=== PATIENT | male | born 1985 | race Hispanic/Latino ===

== ENCOUNTER 2019-03-13 16:37 | Emergency (ER) | payer OTHER | END 2019-03-13 16:56 | disposition home or self-care (01) | LOC: EDH 16:37 | DX: K42.9 Umbilical hernia without obstruction or gangrene (principal); Z72.0 Tobacco use ==

== ENCOUNTER → 2022-09-26 | Outpatient (CLI) | payer OTHER | END | disposition home or self-care (01) | LOC: DTH 10:52 | PROVIDERS: ATTEND Surgery | DX: Z71.3 Dietary counseling and surveillance (principal); E66.01 Morbid (severe) obesity due to excess calories; G47.33 Obstructive sleep apnea (adult) (pediatric); I10 Essential (primary) hypertension; M19.91 Primary osteoarthritis, unspecified site; Z68.45 Body mass index [BMI] 70 or greater, adult | CPT/HCPCS: 97803 ==

== ENCOUNTER → 2022-10-22 | Outpatient (CLI) | payer OTHER | END | disposition home or self-care (01) | LOC: DTH 11:12 | PROVIDERS: ATTEND Surgery | DX: Z71.3 Dietary counseling and surveillance (principal); G47.33 Obstructive sleep apnea (adult) (pediatric); E66.01 Morbid (severe) obesity due to excess calories; I10 Essential (primary) hypertension; M19.91 Primary osteoarthritis, unspecified site; Z68.45 Body mass index [BMI] 70 or greater, adult | CPT/HCPCS: 97803 ==

== ENCOUNTER → 2022-11-19 | Outpatient (CLI) | payer OTHER | END | disposition home or self-care (01) | LOC: DTH 10:47 | PROVIDERS: ATTEND Surgery | DX: Z71.3 Dietary counseling and surveillance (principal); E66.01 Morbid (severe) obesity due to excess calories; G47.33 Obstructive sleep apnea (adult) (pediatric); I10 Essential (primary) hypertension; M19.91 Primary osteoarthritis, unspecified site; Z68.45 Body mass index [BMI] 70 or greater, adult | CPT/HCPCS: 97803 ==

== ENCOUNTER → 2022-12-19 | Outpatient (CLI) | payer OTHER | END | disposition home or self-care (01) | LOC: DTH 10:28 | PROVIDERS: ATTEND Surgery | DX: Z71.3 Dietary counseling and surveillance (principal); E66.01 Morbid (severe) obesity due to excess calories; G47.33 Obstructive sleep apnea (adult) (pediatric); I10 Essential (primary) hypertension; M19.90 Unspecified osteoarthritis, unspecified site; Z68.45 Body mass index [BMI] 70 or greater, adult | CPT/HCPCS: 97803 ==

== ENCOUNTER → 2023-01-22 | Outpatient (CLI) | payer OTHER | END | disposition home or self-care (01) | LOC: DTH 09:35 | PROVIDERS: ATTEND Surgery | DX: Z71.3 Dietary counseling and surveillance (principal); E66.01 Morbid (severe) obesity due to excess calories; G47.33 Obstructive sleep apnea (adult) (pediatric); I10 Essential (primary) hypertension; M19.90 Unspecified osteoarthritis, unspecified site; Z68.45 Body mass index [BMI] 70 or greater, adult | CPT/HCPCS: 97803 ==

== ENCOUNTER → 2023-04-01 | Outpatient (CLI) | payer OTHER | END | disposition home or self-care (01) | LOC: DTH 09:58 | PROVIDERS: ATTEND Surgery | DX: Z71.3 Dietary counseling and surveillance (principal); E66.01 Morbid (severe) obesity due to excess calories; G47.33 Obstructive sleep apnea (adult) (pediatric); I10 Essential (primary) hypertension; M19.90 Unspecified osteoarthritis, unspecified site; Z68.45 Body mass index [BMI] 70 or greater, adult | CPT/HCPCS: 97803 ==

== ENCOUNTER → 2024-11-17 | Outpatient (CLI) | payer MEDICAID ==
[~2024-11-17] MED LIST: ASPI-1443 PO; LEVO150T11 PO; METO-391 PO; OLME-30 PO
[2024-11-17 14:02] LABS: CREATININE 1.0 mg/dL (0.5-1.3); GLOMERULAR FILTR. RATE CALC 97.0 mL/min (>90); UREA NITROGEN, BLOOD 17.0 mg/dL (7-18)
== END | disposition home or self-care (01) ==
LOC: LAB 13:08
PROVIDERS: ATTEND Surgery
DX: K42.9 Umbilical hernia without obstruction or gangrene (principal)
CPT/HCPCS: 36415; 82565; 84520

== ENCOUNTER → 2024-12-10 | Outpatient (CLI) | payer MEDICAID ==
[~2024-12-10] MED LIST changes: +IOHEXOL 350 MG/ML 100ML INFUS..BTL IV ONE
--- NOTE | 2024-12-10 14:53 | HMCIMG ---
EXAM: COMPUTED TOMOGRAPHY OF THE ABDOMEN AND PELVIS WITH AND WITHOUT INTRAVENOUS CONTRAST (ORAL CONTRAST ADMINISTERED) Technique: Helical multiphasic computed tomography from the xiphisternum to the pubic symphysis before and after intravenous contrast with multiplanar reformations; oral contrast administered. Dose optimization techniques applied (automated exposure control and size-based kilovoltage/milliampere modulation; iterative reconstruction). CTDIvol 85.10 mGy; DLP 5,527.3 mGy???cm. Contrast: Intravenous non-ionic contrast administered; oral contrast administered. Clinical Information: Umbilical hernia without obstruction or gangrene. Findings: Lung bases: No pleural effusion, lobar collapse, or consolidation in the imaged lung bases. Liver: Normal size, contour, and attenuation; no focal hepatic lesion; intrahepatic and extrahepatic bile ducts are not dilated. Portal and hepatic veins are normal in caliber. Gallbladder and biliary tree: Gallbladder with normal wall thickness and smooth contour; no stones or mass; cystic duct region unremarkable. Pancreas: Normal size and enhancement; pancreatic duct not dilated; no peripancreatic inflammation. Spleen: Normal parenchymal attenuation and contour; no focal lesion. Adrenals: Normal morphology and attenuation bilaterally. Kidneys and ureters: Normal size, shape, position, and attenuation bilaterally; no renal or ureteral calculus; no mass; no hydronephrosis. Stomach and duodenum: Stomach distended and unremarkable; gastroesophageal junction normal; pylorus and duodenum normal. Small bowel: Normal caliber and wall thickness; no transition point or obstruction. Colon and appendix: Rectum and colon are stool-filled and well distended; no mural thickening; no acute appendicitis. Peritoneum and mesentery: No free intraperitoneal fluid or free air. Lymph nodes: No pathologic abdominopelvic lymphadenopathy. Retroperitoneum and vasculature: Aorta and inferior vena cava normal in course and caliber. Pelvic organs: Urinary bladder normal in wall thickness and contour; prostate appears normal in size. Abdominal wall/soft tissues: Umbilical ventral hernia with a fascial defect measuring approximately 4.9 cm. The hernia sac measures approximately 16 ??? 20 ??? 16 cm (anteroposterior ??? transverse ??? craniocaudal) and contains omental fat and small-bowel loops with mesentery. No bowel wall thickening, decreased enhancement, mesenteric swirling, or upstream dilatation to suggest strangulation or obstruction. Small sliding-type hiatal hernia. Osseous structures: No acute osseous abnormality. Impression:1. Large umbilical hernia with a 4.9 cm fascial defect and a hernia sac measuring approximately 16 ??? 20 ??? 16 cm containing omentum and small-bowel loops, without computed tomography evidence of obstruction or strangulation. Recommend non-urgent general surgical consultation for elective repair; advise urgent evaluation if pain, overlying skin changes, vomiting, or obstipation develop. 2. Small sliding-type hiatal hernia. 3. Otherwise unremarkable contrast-enhanced abdominopelvic computed tomography as detailed above. /[place]
== END | disposition home or self-care (01) ==
LOC: RAH 08:59
PROVIDERS: ATTEND Surgery
DX: K44.9 Diaphragmatic hernia without obstruction or gangrene (principal); K42.9 Umbilical hernia without obstruction or gangrene; K63.89 Other specified diseases of intestine
CPT/HCPCS: 74178; Q9967